=== PATIENT | female | born 1950 | race Caucasian/White ===

== ENCOUNTER 2022-07-26 12:32 | Outpatient (REF) | payer MEDICARE, SELFPAY ==
[2022-07-26 12:54] VITALS: BP 126/58; PULSE 69; RESP 16; TEMP 36.4; O2SAT 92; BMI 19.1
== END 2022-07-26 12:33 | disposition home or self-care (01) ==
LOC: HO.MS 12:32
PROVIDERS: PCP Pediatrics; Visit Provider Ophthalmology
PROC: (CPT 66821; principal; 2022-07-26 15:10)
DX: H26.492 Other secondary cataract, left eye (principal)
CPT/HCPCS: 66821

== ENCOUNTER 2022-08-02 13:15 | Outpatient (REF) | payer MEDICARE, SELFPAY ==
[2022-08-02 13:36] VITALS: BP 142/62; PULSE 66; RESP 16; TEMP 37.3; O2SAT 93
[2022-08-02 13:37] VITALS: BMI 19.5
== END 2022-08-02 13:16 | disposition home or self-care (01) ==
LOC: HO.MS 13:15
PROVIDERS: PCP Pediatrics; Visit Provider Ophthalmology
PROC: (CPT 66821; principal; 2022-08-02 16:20)
DX: H26.491 Other secondary cataract, right eye (principal)
CPT/HCPCS: 66821